=== PATIENT | male | born 1990 | race African-American/Black ===

== ENCOUNTER 2019-05-07 12:58 | Emergency (ER) | END 2019-05-07 13:18 | disposition home or self-care (01) | DX: S51.012D Laceration without foreign body of left elbow, subsequent encounter (principal); F17.200 Nicotine dependence, unspecified, uncomplicated; F11.10 Opioid abuse, uncomplicated; X58.XXXD Exposure to other specified factors, subsequent encounter ==

== ENCOUNTER 2019-06-24 12:14 | Emergency (ER) | payer MEDICAID ==
[~2019-06-24] VITALS: Ht 188 cm; Wt 74.8 kg
--- NOTE | 2019-06-24 12:41 | NUR ---
Patient discharged to home in stable condition & brisk steady gait. Written and verbal after care instructions given to patient. Patient verbalized understanding and compliance of instructions.
== END 2019-06-24 12:44 | disposition home or self-care (01) ==
LOC: ER 12:14
DX: J06.9 Acute upper respiratory infection, unspecified (principal); F17.200 Nicotine dependence, unspecified, uncomplicated; Z88.0 Allergy status to penicillin
CPT/HCPCS: A4663